=== PATIENT | male | born 1960 | race African-American/Black ===

== ENCOUNTER → 2021-03-16 | Outpatient (CLI) | payer BC ==
--- NOTE | 2021-03-16 10:26 | RAD ---
Site ID: [id number] EXAMINATION: Left lower extremity duplex venous ultrasound. TECHNIQUE: DVT protocol. Multiple sonographic images with color Doppler and waveform interrogation we re performed of the left lower extremity veins with compression and augmentation maneuvers. INDICATION: 60 years Male, left leg pain/swelling. FINDINGS: The left lower extremity veins from the groin to below the knee veins were examined with no rmal color-flow, compressibility and waveform demonstrated. IMPRESSION: No evidence of DVT in the left lower extremity. Electronically signed by: Star Weiss MD (03/16/2021 10:24 AM) [email or web address]
== END ==
LOC: US 09:17
PROVIDERS: ATTEND Physician Assistant Medical
DX: M79.605 Pain in left leg (principal); M79.89 Other specified soft tissue disorders
CPT/HCPCS: 93971